=== PATIENT | male | born 1980 | race Caucasian/White ===

== ENCOUNTER 2019-03-09 02:14 | Emergency (ER) | payer SELFPAY ==
[~2019-03-09] VITALS: Ht 167.6 cm; Wt 56.7 kg
[2019-03-09 02:15] VITALS: BP 134/87
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
--- NOTE | 2019-03-09 02:27 | NUR ---
DR. AGUILA ARCHIBALD PT
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
[2019-03-09 02:40] VITALS: BP 133/85
--- NOTE | 2019-03-09 02:40 | NUR ---
PT REFUSING ALL TREATMENT AT THIS TIME
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
== END 2019-03-09 02:41 ==
LOC: MED 02:14
DX: S00.81XA Abrasion of other part of head, initial encounter (principal); R00.0 Tachycardia, unspecified; R03.0 Elevated blood-pressure reading, without diagnosis of hypertension; V49.49XA Driver injured in collision with other motor vehicles in traffic accident, initial encounter; W22.10XA Striking against or struck by unspecified automobile airbag, initial encounter; Y93.89 Activity, other specified; Y92.488 Other paved roadways as the place of occurrence of the external cause; Y99.8 Other external cause status
CPT/HCPCS: 90715; 99283